=== PATIENT | female | born 1960 | race Caucasian/White ===

== ENCOUNTER → 2023-10-28 14:40 | Outpatient (REF) | payer BC, SELFPAY | LOC: RAD 14:40 | PROVIDERS: ATTENDING PHYSICIAN Nurse Practitioner Adult Health | DX: Z00.00 Encounter for general adult medical examination without abnormal findings (principal); I80.9 Phlebitis and thrombophlebitis of unspecified site; M79.89 Other specified soft tissue disorders | CPT/HCPCS: 93971 ==

== ENCOUNTER → 2023-11-17 10:32 | Outpatient (REF) | payer BC, SELFPAY | LOC: RAD 10:32 | PROVIDERS: ATTENDING PHYSICIAN Nurse Practitioner Adult Health | DX: Z78.0 Asymptomatic menopausal state (principal); M85.80 Other specified disorders of bone density and structure, unspecified site | CPT/HCPCS: 77080 ==

== ENCOUNTER → 2023-11-24 16:37 | Outpatient (REF) | payer BC, SELFPAY | LOC: RAD 16:37 | PROVIDERS: ATTENDING PHYSICIAN Internal Medicine; FAMILY PHYSICIAN Nurse Practitioner Adult Health | DX: M25.561 Pain in right knee (principal); M81.0 Age-related osteoporosis without current pathological fracture | CPT/HCPCS: 73564 ==

== ENCOUNTER 2024-01-18 14:00 | Outpatient (RCR) | payer BC, SELFPAY | END 2024-01-18 23:59 | disposition home or self-care (01) | LOC: RPT 14:00 | PROVIDERS: ATTENDING PHYSICIAN Nurse Practitioner Adult Health | DX: M17.11 Unilateral primary osteoarthritis, right knee (principal); M25.561 Pain in right knee; Z73.6 Limitation of activities due to disability; R29.3 Abnormal posture | CPT/HCPCS: 97110; 97112; 97163; 97530 ==

== ENCOUNTER 2024-02-04 16:10 | Outpatient (RCR) | payer BC, SELFPAY | END 2024-02-04 23:59 | disposition home or self-care (01) | LOC: RPT 16:10 | PROVIDERS: ATTENDING PHYSICIAN Nurse Practitioner Adult Health | DX: M17.11 Unilateral primary osteoarthritis, right knee (principal); M25.561 Pain in right knee; Z73.6 Limitation of activities due to disability; R29.3 Abnormal posture | CPT/HCPCS: 97110; 97112; 97530 ==

== ENCOUNTER → 2024-06-22 15:01 | Outpatient (REF) | payer BC, SELFPAY | LOC: WDC 15:01 | PROVIDERS: ATTENDING PHYSICIAN Nurse Practitioner Adult Health | DX: Z12.31 Encounter for screening mammogram for malignant neoplasm of breast (principal) | CPT/HCPCS: 77063; 77067 ==